=== PATIENT | female | born 1985 | race Caucasian/White ===

== ENCOUNTER 2016-08-15 09:55 | Emergency (ER) | payer OTHER ==
[~2016-08-15] VITALS: Ht 157.4 cm; Wt 63.5 kg
[~2016-08-15 09:55] MED LIST: AMOXICILLIN500 M2 PO; AMOXICILLIN500 MG PO; AUGMENTIN 875875 MG PO; BACTRIM DS 8001 TA1 PO; CIPRO250 MG PO; CIPRO500 MG PO; CLEOCIN HCL150 MG PO; COLACE100 MG PO; FLEXERIL10 MG PO; FLEXERIL5 MG PO; IBU800 M1 PO; IRON TABLETS325 MG PO; KEFLEX500 MG PO; MEDROL DOSEPAK4 MG PO; MOTRIN600 MG PO; MOTRIN800 MG PO; Motrin,Rufen800 MG PO; NAPROSYN250 MG PO; NAPROSYN500 MG PO; NASONEX0.05 MG/AC NAS; NATURAL FOLIC0.4 MG PO; NKHM; NORCO 325 MG-51 TAB PO; PEN-VK500 MG PO; PENICILLIN VK500 MG PO; PERCOCET 325 MG1 TA2 PO; PERIDEX 480 ML480 ML PO; PERIDEX118 ML MM; PREDNICOT20 MG PO; PRENATAL1 TA2 PO; ROBAXIN750 MG PO; ROBITUSSIN DM 105 ML PO; TESSALON PERLE100 M1 PO; TRAMADOL HCL50 MG PO; TYLENOL W/CODEI1 TA4 PO; TYLENOL325 M1 PO; ULTRAM50 MG PO; VICODIN 5/500 505 MG PO; VOLTAREN50 M1 PO; VOLTAREN75 MG PO; Zofran4 MG PO
[2016-08-15 10:32] LABS: BASO % 0.1 % (0.0-1.0); EOS % 0.2 % (1.0-4.0); HEMATOCRIT 40.4 % (37.0-47.0); HEMOGLOBIN 13.7 g/dl (12.0-16.0); IG # 0.1 10*3/uL (0.0-0.1); LYMPH # 1.8 10*3/uL (1.3-4.4); LYMPH % 13.1 % (27.0-41.0); MEAN CELL VOLUME 91.4 fl (81.0-99.0); MEAN CORPUSCULAR HGB CONC 33.9 g/dl (33.0-37.0); MEAN PLATELET VOLUME 10.6 fl (9.6-12.3); MONO # 0.7 10*3/uL (0.1-1.0); MONO % 5.1 % (3.0-9.0); NEUT # 10.9 10*3/uL (2.3-7.9); PLATELET COUNT AUTOMATED 256 10*3/uL (130-400); RED BLOOD COUNT 4.42 10*6/uL (4.10-5.10); WHITE BLOOD COUNT 13.5 10*3/uL (4.8-10.8)
[2016-08-15 10:33] LABS: BILIRUBIN NEGATIVE (NEGATIVE); BLOOD 3+ (NEGATIVE); CLARITY CLOUDY (CLEAR); COLOR YELLOW (YELLOW); GLUCOSE NEGATIVE (NEGATIVE); KETONE NEGATIVE (NEGATIVE); LEUKO ESTERASE 2+ (NEGATIVE); NITRITE POSITIVE (NEGATIVE); PROTEIN 3+ (NEGATIVE); UROBILINOGEN 0.2 E.U./dl (0.2-1.0)
[2016-08-15 10:48] LABS: ALBUMIN 3.8 gm/dl (3.1-4.5); ALKALINE PHOSPHATASE 59 U/L (45-117); BILIRUBIN, TOTAL 0.4 mg/dl (0.2-1.0); BUN 11 mg/dl (7-24); CARBON DIOXIDE 28 mmol/L (21-32); CHLORIDE 105 mmol/L (98-107); EST GLOM FILT AFRICAN AMERICAN > 60 ml/min; GLUCOSE 107 mg/dL (65-99); POTASSIUM 3.9 mmol/L (3.5-5.1); SGOT/AST 8 IU/L (3-35); SGPT/ALT 22 U/L (12-78); SODIUM 141 mmol/L (136-145); TOTAL PROTEIN 7.1 gm/dL (6.4-8.2)
[2016-08-15 10:53] LABS: BACTERIA 4+; RBC TNTC rbc/hpf (0-2); URINE REFLEX COMMENT YES (NO); WBC TNTC wbc/hpf (0-5)
[2016-08-15] MEDS ORDERED: PYRIDIUM200 M1 PO (11:09)
[2016-08-15] MEDS ORDERED: MACROBID100 M1 PO (11:09)
== END 2016-08-15 11:26 | disposition home or self-care (01) ==
LOC: ED 09:55
PROVIDERS: Nurse Practitioner Family
DX: N39.0 Urinary tract infection, site not specified (principal); R31.9 Hematuria, unspecified

== ENCOUNTER 2020-04-27 11:40 | Emergency (ER) | payer OTHER ==
[~2020-04-27] VITALS: Wt 72.6 kg
[~2020-04-27 11:40] MED LIST changes: +MACROBID100 M1 PO; +PYRIDIUM200 M1 PO
[2020-04-27 13:07] LABS: BASO % 0.1 % (0.0-1.0); EOS # 0.1 10*3/uL (0.0-0.4); EOS % 1.1 % (1.0-4.0); HEMATOCRIT 40.6 % (37.0-47.0); LYMPH # 2.1 10*3/uL (1.3-4.4); LYMPH % 27.4 % (27.0-41.0); MEAN CELL VOLUME 93.1 fl (81.0-99.0); MEAN CORPUSCULAR HGB 30.7 pg (27.0-31.0); MEAN PLATELET VOLUME 10.4 fl (9.6-12.3); MONO # 0.4 10*3/uL (0.1-1.0); MONO % 5.9 % (3.0-9.0); NEUT # 4.9 10*3/uL (2.3-7.9); NEUT % 65.2 % (47.0-73.0); PLATELET COUNT AUTOMATED 241 10*3/uL (130-400); RED BLOOD COUNT 4.36 10*6/uL (4.10-5.10); RED CELL DISTRI WIDTH 12.6 % (0-14.5); WHITE BLOOD COUNT 7.5 10*3/uL (4.8-10.8)
[2020-04-27 13:21] LABS: ALBUMIN 3.6 gm/dl (3.1-4.5); ALKALINE PHOSPHATASE 58 U/L (45-117); BUN 10 mg/dl (7-24); CHLORIDE 108 mmol/L (98-107); CREATININE 0.82 mg/dL (0.55-1.02); SGOT/AST 13 IU/L (3-35); SGPT/ALT 27 U/L (12-78); SODIUM 140 mmol/L (136-145); TOTAL PROTEIN 7.5 gm/dL (6.4-8.2)
[2020-04-27] MEDS ORDERED: CEPHALEXIN500 M1 PO (13:57)
[2020-04-27] MEDS ORDERED: SEPTDS PO (13:57)
== END 2020-04-27 14:05 | disposition home or self-care (01) ==
LOC: ED 11:40
PROVIDERS: Physician Assistant
DX: L02.11 Cutaneous abscess of neck (principal)

== ENCOUNTER 2021-03-21 14:16 | Emergency (ER) | payer OTHER ==
[~2021-03-21] VITALS: Ht 157.4 cm; Wt 77.1 kg
[~2021-03-21 14:16] MED LIST changes: +CEPHALEXIN500 M1 PO; +SEPTDS PO
[2021-03-21] MEDS ORDERED: PREDNISONE20 M1 PO (16:47)
== END 2021-03-21 16:52 | disposition home or self-care (01) ==
LOC: ED 14:16
DX: B34.9 Viral infection, unspecified (principal); Z20.822 Contact with and (suspected) exposure to COVID-19

== ENCOUNTER 2021-08-08 18:46 | Emergency (ER) | payer OTHER ==
[~2021-08-08] VITALS: Wt 90.7 kg
[~2021-08-08 18:46] MED LIST changes: +PREDNISONE20 M1 PO
== END 2021-08-08 21:00 | disposition left against medical advice (07) ==
LOC: ED 18:46
DX: Z53.21 Procedure and treatment not carried out due to patient leaving prior to being seen by health care provider (principal)

== ENCOUNTER 2021-08-23 15:00 | Inpatient (IN) | payer OTHER ==
[~2021-08-23] VITALS: Ht 157.4 cm; Wt 81.6 kg
[2021-08-23 15:15] VITALS: BP 122/75
[2021-08-23 20:01] LABS: BASO % 0.4 % (0.0-1.0); EOS # 0.1 10*3/uL (0.0-0.4); EOS % 1.7 % (1.0-4.0); HEMATOCRIT 37.8 % (37.0-47.0); LYMPH # 3.1 10*3/uL (1.3-4.4); LYMPH % 39.7 % (27.0-41.0); MEAN CORPUSCULAR HGB 30.7 pg (27.0-31.0); MEAN CORPUSCULAR HGB CONC 34.1 g/dl (33.0-37.0); MEAN PLATELET VOLUME 10.4 fl (9.6-12.3); MONO # 0.4 10*3/uL (0.1-1.0); NEUT # 4.1 10*3/uL (2.3-7.9); NEUT % 52.8 % (47.0-73.0); PLATELET COUNT AUTOMATED 299 10*3/uL (130-400); RED CELL DISTRI WIDTH 12.3 % (0-14.5); WHITE BLOOD COUNT 7.8 10*3/uL (4.8-10.8)
[2021-08-23 20:18] LABS: ALBUMIN 3.2 gm/dl (3.1-4.5); ALKALINE PHOSPHATASE 60 U/L (45-117); BUN 9 mg/dl (7-24); CHLORIDE 111 mmol/L (98-107); SGOT/AST 6 IU/L (3-35); SGPT/ALT 19 U/L (12-78); SODIUM 141 mmol/L (136-145); TOTAL PROTEIN 6.7 gm/dL (6.4-8.2)
[2021-08-24 05:28] LABS: CHLORIDE 110 mmol/L (98-107); POTASSIUM 4.1 mmol/L (3.5-5.1); SODIUM 139 mmol/L (136-145)
[2021-08-24 05:32] LABS: ACT PARTIAL THROMBO TIME 26.2 SECONDS (20.0-32.1)
[2021-08-24 05:40] LABS: ALBUMIN 3.2 gm/dl (3.1-4.5); ALKALINE PHOSPHATASE 60 U/L (45-117); BUN 8 mg/dl (7-24); CHOLESTEROL 131 mg/dL (<200); CREATININE 0.64 mg/dL (0.55-1.02); FREE T4 0.77 ng/dl (0.76-1.46); LDL CHOLESTEROL 71 mg/dL (9-159); SGOT/AST 8 IU/L (3-35); SGPT/ALT 21 U/L (12-78); TOTAL PROTEIN 6.5 gm/dL (6.4-8.2); TRIGLYCERIDES 69 mg/dl (<150)
[2021-08-24 06:44] VITALS: BP 117/78
[2021-08-24 06:51] LABS: BASO % 0.3 % (0.0-1.0); EOS # 0.1 10*3/uL (0.0-0.4); EOS % 2.1 % (1.0-4.0); HEMATOCRIT 38.2 % (37.0-47.0); LYMPH # 2.3 10*3/uL (1.3-4.4); LYMPH % 34.4 % (27.0-41.0); MEAN CORPUSCULAR HGB 30.7 pg (27.0-31.0); MEAN CORPUSCULAR HGB CONC 33.8 g/dl (33.0-37.0); MEAN PLATELET VOLUME 11.1 fl (9.6-12.3); MONO # 0.3 10*3/uL (0.1-1.0); MONO % 4.7 % (3.0-9.0); NEUT # 3.8 10*3/uL (2.3-7.9); NEUT % 58.2 % (47.0-73.0); PLATELET COUNT AUTOMATED 281 10*3/uL (130-400); RED CELL DISTRI WIDTH 12.4 % (0-14.5); WHITE BLOOD COUNT 6.6 10*3/uL (4.8-10.8)
[2021-08-24 07:00] LABS: VITAMIN D, 25-HYDROXY 28.2 ng/mL (30-100)
[2021-08-24 08:00] VITALS: BP 107/87
[2021-08-24 19:44] VITALS: BP 100/58
== END 2021-08-25 04:28 | disposition short-term general hospital (02) | DRG 40 ==
LOC: ED 15:00 → EDHOLD 23:31
PROVIDERS: Emergency Medicine; Internal Medicine; ADMIT Internal Medicine; ATTEND Internal Medicine
DX: G95.20 Unspecified cord compression (principal); E87.8 Other disorders of electrolyte and fluid balance, not elsewhere classified; R73.9 Hyperglycemia, unspecified; F17.200 Nicotine dependence, unspecified, uncomplicated; Z72.89 Other problems related to lifestyle; Z98.891 History of uterine scar from previous surgery; Z79.899 Other long term (current) drug therapy; Z71.6 Tobacco abuse counseling

== ENCOUNTER → 2021-09-16 | Outpatient (CLI) | payer OTHER | END | disposition home or self-care (01) | LOC: RAD 11:37 | PROVIDERS: ATTEND Physician Assistant | DX: G95.9 Disease of spinal cord, unspecified (principal) ==

== ENCOUNTER 2021-11-02 15:36 | Emergency (ER) | payer OTHER ==
[~2021-11-02] VITALS: Ht 165.1 cm; Wt 99.8 kg
[2021-11-02] MEDS ORDERED: PREDNISONE20 M1 PO (21:20)
== END 2021-11-02 21:31 | disposition home or self-care (01) ==
LOC: ED 15:36
DX: M54.12 Radiculopathy, cervical region (principal); M54.9 Dorsalgia, unspecified; F17.200 Nicotine dependence, unspecified, uncomplicated; Z98.890 Other specified postprocedural states

== ENCOUNTER → 2022-02-03 | Outpatient (CLI) | payer OTHER | END | disposition home or self-care (01) | LOC: US 01-19 14:30 | PROVIDERS: ATTEND Podiatrist Foot & Ankle Surgery | DX: R60.0 Localized edema (principal); I87.1 Compression of vein ==

== ENCOUNTER → 2022-02-15 | Outpatient (CLI) | payer OTHER | END | disposition home or self-care (01) | LOC: US 13:00 | PROVIDERS: ATTEND Nurse Practitioner Primary Care | DX: I73.9 Peripheral vascular disease, unspecified (principal); M79.89 Other specified soft tissue disorders ==

== ENCOUNTER → 2022-04-24 | Outpatient (CLI) | payer OTHER | END | disposition home or self-care (01) | LOC: CT 09:00 | PROVIDERS: ATTEND Nurse Practitioner Primary Care | DX: I73.9 Peripheral vascular disease, unspecified (principal) ==

== ENCOUNTER 2022-04-25 13:10 | Emergency (ER) | payer OTHER ==
[~2022-04-25] VITALS: Ht 157.4 cm; Wt 95.3 kg
[2022-04-25] MEDS ORDERED: PREDNISONE20 M1 PO (16:52)
== END 2022-04-25 17:00 | disposition home or self-care (01) ==
LOC: ED 13:10
DX: G89.29 Other chronic pain (principal); M79.604 Pain in right leg; Z98.890 Other specified postprocedural states

== ENCOUNTER → 2024-03-11 | Outpatient (CLI) | payer OTHER ==
[2024-03-11 15:25] LABS: BASO % 0.4 % (0.0-1.0); EOS # 0.2 10*3/uL (0.0-0.4); EOS % 3.6 % (1.0-4.0); HEMATOCRIT 38.5 % (37.0-47.0); LYMPH # 2.2 10*3/uL (1.3-4.4); LYMPH % 44.5 % (27.0-41.0); MEAN CELL VOLUME 89.1 fl (81.0-99.0); MEAN CORPUSCULAR HGB 29.6 pg (27.0-31.0); MEAN CORPUSCULAR HGB CONC 33.2 g/dl (33.0-37.0); MEAN PLATELET VOLUME 10.1 fl (9.6-12.3); MONO # 0.3 10*3/uL (0.1-1.0); MONO % 6.8 % (3.0-9.0); NEUT # 2.2 10*3/uL (2.3-7.9); NEUT % 44.3 % (47.0-73.0); PLATELET COUNT AUTOMATED 246 10*3/uL (130-400); RED BLOOD COUNT 4.32 10*6/uL (4.10-5.10); RED CELL DISTRI WIDTH 13.4 % (0-14.5)
[2024-03-11 15:38] LABS: URINE AMPHETAMINES Positive (1000ng/ml); URINE BARBITURATES Negative (200ng/ml); URINE BENZODIAZEPINES Negative (200ng/ml); URINE CANNABINOIDS (THC) Negative (50ng/ml); URINE COCAINE Negative (300ng/ml); URINE METHADONE Negative (300ng/ml); URINE OPIATES Negative (300ng/ml); URINE PHENCYCLIDINE Negative (25ng/ml)
[2024-03-11 15:50] LABS: ALKALINE PHOSPHATASE 75 U/L (46-116); BUN 9 mg/dl (9-23); CHLORIDE 108 mmol/L (98-107); POTASSIUM 3.7 mmol/L (3.4-5.1); SGPT/ALT 16 U/L (5-49); T3 UPTAKE 33.6 % (22.4-36.7); THYROXINE (T4) TOTAL 5.7 ug/dl (4.5-10.9); TOTAL PROTEIN 6.9 gm/dL (6.0-8.0)
[2024-03-12 06:09] LABS: HBSAG Negative (Negative); HEP B CORE AB, IGM Negative (Negative); HEPATITIS C ANTIBODY Non Reactive (Non Reactive)
== END | disposition home or self-care (01) ==
LOC: LAB 14:54
DX: Z11.59 Encounter for screening for other viral diseases (principal); Z13.29 Encounter for screening for other suspected endocrine disorder; F11.20 Opioid dependence, uncomplicated; Z19.2 Hormone resistant malignancy status

== ENCOUNTER → 2025-07-06 | Outpatient (CLI) | payer OTHER ==
[2025-07-07 17:07] LABS: BARBITURATE, URINE Negative ng/mL (Cutoff=200); CANNABINOID, URINE Negative ng/mL (Cutoff=20); PH URINE 5.3 (4.5-8.9)
== END | disposition home or self-care (01) ==
LOC: LAB 12:10
PROVIDERS: ATTEND Nurse Practitioner Psychiatric/Mental Health
DX: F11.20 Opioid dependence, uncomplicated (principal)